=== PATIENT | male | born 1990 | race Caucasian/White ===

== ENCOUNTER 2024-11-10 12:02 | Emergency (ER) | payer MEDICAID ==
[~2024-11-10] VITALS: Ht 170.2 cm; Wt 82.0 kg
[2024-11-10 12:17] VITALS: O2SAT 99
[2024-11-10] MEDS ORDERED: GUAI-450 MT (14:57)
[2024-11-10] MEDS ORDERED: BENZ1LOZ73 MT (14:57)
[2024-11-10] MEDS ORDERED: IBUP-2029 MT (14:57)
[2024-11-10 15:21] VITALS: TEMP 37.1; O2SAT 99
[2024-11-10 15:22] VITALS: BP 122/77; PULSE 82; RESP 16
[2024-11-10] MEDS: IBUPROFEN 600MG TABLET PO ONE (15:22)
== END 2024-11-10 15:21 | disposition home or self-care (01) ==
LOC: ER 12:02
DX: B34.9 Viral infection, unspecified (principal)
CPT/HCPCS: 99282

== ENCOUNTER 2025-02-08 03:25 | Emergency (ER) | payer MEDICAID ==
[~2025-02-08] VITALS: Ht 170.2 cm; Wt 82.0 kg
[~2025-02-08 03:25] MED LIST: BENZ1LOZ73 MT; GUAI-450 MT; IBUP-1455 MT
[2025-02-08 03:33] VITALS: TEMP 36.9; O2SAT 98
[2025-02-08] MEDS ORDERED: NAPR-1176 MT (04:57)
[2025-02-08] MEDS: ACETAMINOPHEN 500MG TABLET PO ONE (05:29)
[2025-02-08 05:30] VITALS: BP 114/63; PULSE 59; RESP 17; O2SAT 99
== END 2025-02-08 05:30 | disposition home or self-care (01) ==
LOC: ER 03:59
DX: K40.90 Unilateral inguinal hernia, without obstruction or gangrene, not specified as recurrent (principal); Z79.1 Long term (current) use of non-steroidal anti-inflammatories (NSAID)
CPT/HCPCS: 99282